=== PATIENT | male | born 1995 | race Caucasian/White ===

== ENCOUNTER 2020-12-04 09:53 | Emergency (ER) | payer OTHER, SELFPAY ==
--- NOTE | ~2020-12-04 | XR_ITS ---
EXAMINATION: XR chest 2V DATE: 12/04/2020 10:40 INDICATION: Shortness of breath. Cough. TECHNIQUE: Frontal and lateral views of the chest were obtained. COMPARISON: None. FINDINGS: There are patchy airspace opacities in the mid and lower lung zones. No pleural effusion or pneumothorax. The heart size is normal. IMPRESSION: 1. Patchy airspace opacities in the mid and lower lung zones, likely pneumonia such as COVID-19 pneum onia. Reviewed, dictated and finalized at location A. IMPRESSION: 1. Patchy airspace opacities in the mid and lower lung zones, likely pneumonia such as COVID-19 pneumonia.
--- NOTE | 2020-12-04 09:57 | ECG_ITS ---
Measurements Intervals [place] Rate: 111 P: 13 [place]: 150 QRS: -14 QRSD: 101 T: -6 QT: 307 QTc: 419 Interpretive Statements SINUS TACHYCARDIA BORDERLINE T WAVE ABNORMALITY- INFERIOR LEADS BASELINE ARTIFACT- I, II, III, AVR, AVF ABNORMAL ECG Electronically Signed On 12-04-2020 10:08:35 CDT by Samuel Conn D.O.
[2020-12-04 10:00] VITALS: BP 128/74; PULSE 115; RESP 24; TEMP 36.5; O2SAT 94
[2020-12-04 10:26] LABS: Basophils Percent Auto 0.2 % (0.2-1.2); Hematocrit 45.7 % (42.0-52.0); Hemoglobin 15.4 g/dL (14.0-18.0); Immature Granulocyte Absolute 0.03 K/mm3 (0.00-0.031); Immature Granulocyte Percent A 0.7 % (0-0.5); Lymphocytes Absolute Auto 1.31 K/mm3 (0.9-3.2); Lymphocytes Percent Auto 29.8 % (18.3-44.2); Mean Corpuscular HGB Conc 33.7 g/dl (32-36); Mean Corpuscular Hemoglobin 28.3 pg (26-34); Mean Corpuscular Volume 83.9 fl (80-100); Mean Platelet Volume 9.7 fl (7.4-10.4); Monocytes Absolute Auto 0.2 K/mm3 (0.1-0.6); Monocytes Percent Auto 5.2 % (2.6-8.5); Neutrophils Absolute Auto 2.8 K/mm3 (1.3-6.7); Neutrophils Percent Auto 64.1 % (45.5-73.1); Platelet Count Result 172 k/mm3 (150-375); Red Blood Count 5.45 M/mm3 (4.6-6.20); Red Cell Distribution Width 12.2 % (11.5-14.5); White Blood Count 4.4 K/mm3 (4.5-10.0)
[2020-12-04 11:03] LABS: Anion Gap 10 mmol/L (8-16); Blood Urea Nitrogen 12 mg/dL (9-20); Calcium 8.9 mg/dL (8.4-10.2); Carbon Dioxide 24 mmol/L (22-30); Chloride 102 mmol/L (98-107); Estimated CRCL calculation 123 ml/min; Estimated Glomerular Filt Rate > 60; Glucose 124 mg/dL (65-110); Potassium 3.4 mmol/L (3.4-5.0); Sodium 136 mmol/L (137-145)
--- NOTE | 2020-12-04 11:15 | ED.SOB ---
HPI - SOB/Dyspnea General Chief Complaint: Shortness of Breath/Dyspnea Stated Complaint: I can't breathe Time Seen by Provider: 12/04/20 11:06 History of Present Illness HPI Narrative: Body aches, DODSON, cough, nausea for the past few days. He has not been vaccinated for COVID-19. No fever, vomiting, diarrhea. Related Data Allergies Allergy/AdvReac Type Severity Reaction Status Date / Time No Known Allergies Allergy Unverified 04/18/13 13:00 Review of Systems Review of Systems: All systems reviewed & are unremarkable except as noted in HPI and below Constitutional: Constitutional: Reports chills, Reports fatigue and Denies fever(s) ENT: Denies dizziness and Denies sore throat Respiratory: Respiratory: Reports cough and Reports dyspnea Gastrointestinal: Gastrointestinal: Denies abdominal pain, Denies diarrhea, Reports nausea and Denies vomiting Genitourinary: Genitourinary: Reports no additional male genitourinary complaints Neurologic: Reports headache(s) [facility] Social History Social History Gender identity (if verbalized by the patient): Male Exam Const: General: no acute distress, alert and ill appearing Orientation/consciousness: patient oriented x3 HENMT: Head: normal to inspection Neck: Neck: normal visual inspection Resp: Effort & Inspection: tachypneic Auscultation: crackles and wheezes Cardio: Rate: tachycardic Rhythm: regular rhythm GI: GI Palp: Yes Soft to palpation and No Tenderness to palpation present (GI) Skin: General skin exam: normal color Neuro: General: patient oriented x3, moves all extremities, no focal motor deficits and CN's II-XI intact bilaterally Speech: normal speech Extrem: General: normal to inspection and no edema Psych: Mental Status: mental status grossly normal Affect: normal affect Attitude: cooperative Course Vital Signs Vital signs: Vital Signs Temperature 36.5 C 12/04/20 10:00 Pulse Rate 115 H 12/04/20 10:00 Respiratory Rate 24 H 12/04/20 10:00 Blood Pressure 128/74 12/04/20 10:00 Pulse Oximetry 94 12/04/20 10:00 Temperature 36.5 C 12/04/20 10:00 Pulse Rate 102 H 12/04/20 11:38 Respiratory Rate 18 12/04/20 11:38 Blood Pressure 128/74 12/04/20 10:00 Pulse Oximetry 94 12/04/20 10:00 MDM - SOB/Dyspnea MDM Narrative Medical decision making narrative: Covid pneumonia. Oxygenating well. Medical Records Attestation: I reviewed the patient's medical records. Lab Data Attestation: I reviewed the patient's lab results. Result diagrams: 12/04/20 10:10 12/04/20 10:10 Labs: Lab Results 12/04/20 12/04/20 12/04/20 Range/Units 10:10 10:10 11:52 WBC 4.4 L (4.5-10.0) K/mm3 RBC 5.45 (4.6-6.20) M/mm3 Hgb 15.4 (14.0-18.0) g/dL Hct 45.7 (42.0-52.0) % MCV 83.9 (80-100) fl MCH 28.3 (26-34) pg MCHC 33.7 (32-36) g/dl RDW 12.2 (11.5-14.5) % Plt Count 172 (150-375) k/mm3 MPV 9.7 (7.4-10.4) fl Immature Gran % (Auto) 0.7 H (0-0.5) % Neut % (Auto) 64.1 (45.5-73.1) % Lymph % (Auto) 29.8 (18.3-44.2) % [place] % (Auto) 5.2 (2.6-8.5) % Eos % (Auto) 0.0 (0-4.4) % Baso % (Auto) 0.2 (0.2-1.2) % Lymph # (Auto) 1.31 (0.9-3.2) K/mm3 [place] # (Auto) 0.2 (0.1-0.6) K/mm3 Eos # (Auto) 0.0 (0-0.3) K/mm3 Baso # (Auto) 0.0 (0.0-0.1) K/mm3 Abs Immat Gran (auto) 0.03 (0.00-0.031) K/mm3 Absolute Neuts (auto) 2.8 (1.3-6.7) K/mm3 Absolute Nucleated RBC 0.0 (0.0-0.012) K/mm3 Nucleated RBC % 0.0 (0.0-0.2) % Sodium 136 L (137-145) mmol/L Potassium 3.4 (3.4-5.0) mmol/L Chloride 102 (98-107) mmol/L Carbon Dioxide 24 (22-30) mmol/L Anion Gap 10 (8-16) mmol/L BUN 12 (9-20) mg/dL Creatinine 1.00 (0.7-1.3) mg/dL Estim Creat Clear Calc 123 ml/min Estimated GFR > 60 (59 - ) Glucose 124 H (65-110) mg/dL Calcium
[2020-12-04] MEDS: ALBUTEROL SULFATE NEB 2.5 MG/0.5 ML INH 5 MG INHALATION (11:32)
[2020-12-04] MEDS: IPRATROPIUM BR 0.02% INH SOLN 0.5 MG/2.5 ML VIAL INHALATION (11:32)
[2020-12-04 11:33] VITALS: PULSE 102; RESP 24
[2020-12-04 11:38] VITALS: PULSE 102; RESP 18
[2020-12-04] MEDS: DEXAMETHASONE SOD PHOS INJ 4 MG/ML VIAL 10 MG IM (11:48)
[2020-12-05 04:00] LABS: SARS-CoV-2 RNA PCR Positive
== END 2020-12-04 11:58 | disposition home or self-care (01) ==
PROVIDERS: Emergency Provider Emergency Medicine
DX: U07.1 COVID-19 (principal); J12.82 Pneumonia due to coronavirus disease 2019
CPT/HCPCS: 36415; 71046; 80048; 85025; 93005; 94640; 96372; 99284; C9803; J1100; U0003; U0005

== ENCOUNTER 2020-12-06 15:32 | Emergency (ER) | payer OTHER, SELFPAY ==
--- NOTE | ~2020-12-06 | XR_ITS ---
EXAMINATION: XR chest 1V DATE: 12/06/2020 15:52 INDICATION: COVID pneumonia with increasing shortness of breath TECHNIQUE: frontal view of the chest was obtained. COMPARISON: Chest radiograph dated 12/04/2020 FINDINGS: Streaky and patchy airspace opacities in the bilateral mid and lower lung zones with slight improveme nt in the bilateral mid and right lower lung zones and with slight increase in the left lower lung zo ne. No pleural effusion or pneumothorax. The cardiomediastinal silhouette is normal. IMPRESSION: 1. Minimal overall change in bilateral lung disease consistent with COVID pneumonia. Reviewed, dictated and finalized at location A. IMPRESSION: 1. Minimal overall change in bilateral lung disease consistent with COVID pneum onia.
--- NOTE | ~2020-12-06 | CT_ITS ---
EXAMINATION: CTA chest PE protocol DATE: 12/07/2020 07:42 CDT INDICATION: Shortness of breath. Covid pneumonia. TECHNIQUE: Computed tomographic angiography (CTA) of the chest was performed with 100 mL Omnipaque-35 0 intravenous contrast. The dose-length product was 475.79 mGy-cm. Maximum intensity projection 3D-re constructions of the aorta and other arteries were constructed by the technologist on a separate work station. Automated exposure control and iterative reconstruction technique were employed. COMPARISON: Chest dated 12/06/2020. FINDINGS: Study is significantly limited by respiratory motion artifact for evaluation of peripheral pulmonary arteries. No large central pulmonary embolism. No significant pleural or pericardial effusi on. Heart size normal. There is patchy airspace disease throughout both lungs, compatible with pneumo bryce. No endobronchial lesions. No pneumothorax. Cardiomegaly. No thoracic lymphadenopathy. IMPRESSION: 1. No large central pulmonary embolism. Evaluation for peripheral pulmonary arteries limited by signi ficant respiratory motion. 2: Extensive patchy bilateral infiltrates, compatible with pneumonia. Reviewed, dictated and finalized at location A. IMPRESSION: 1. No large central pulmonary embolism. Evaluation for peripheral pulmonary art eries limited by significant respiratory motion. 2: Extensive patchy bilateral infiltrates, compatible with pneumonia.
[2020-12-06 15:33] VITALS: BP 138/75; PULSE 95; RESP 24; TEMP 36.4; O2SAT 94
--- NOTE | 2020-12-06 15:35 | ECG_ITS ---
Measurements Intervals [place] Rate: 90 P: 24 [place]: 148 QRS: 7 QRSD: 95 T: 15 QT: 346 QTc: 425 Interpretive Statements SINUS RHYTHM BORDERLINE T WAVE ABNORMALITY- INFERIOR LEADS BASELINE ARTIFACT- I, II, III, AVR, AVF BORDERLINE ECG Electronically Signed On 12-06-2020 17:43:14 CDT by Samuel Conn D.O.
[2020-12-06 15:52] LABS: Basophils Percent Auto 0.2 % (0.2-1.2); Hematocrit 49.5 % (42.0-52.0); Hemoglobin 16.3 g/dL (14.0-18.0); Immature Granulocyte Absolute 0.13 K/mm3 (0.00-0.031); Immature Granulocyte Percent A 1.1 % (0-0.5); Lymphocytes Percent Auto 6.9 % (18.3-44.2); Mean Corpuscular HGB Conc 32.9 g/dl (32-36); Mean Corpuscular Hemoglobin 27.9 pg (26-34); Mean Corpuscular Volume 84.6 fl (80-100); Mean Platelet Volume 9.5 fl (7.4-10.4); Monocytes Absolute Auto 0.9 K/mm3 (0.1-0.6); Monocytes Percent Auto 7.4 % (2.6-8.5); Neutrophils Absolute Auto 9.9 K/mm3 (1.3-6.7); Neutrophils Percent Auto 84.4 % (45.5-73.1); Platelet Count Result 343 k/mm3 (150-375); Red Blood Count 5.85 M/mm3 (4.6-6.20); Red Cell Distribution Width 12.3 % (11.5-14.5); White Blood Count 11.7 K/mm3 (4.5-10.0)
[2020-12-06 16:01] LABS: Anion Gap 8 mmol/L (8-16); Blood Urea Nitrogen 23 mg/dL (9-20); Carbon Dioxide 26 mmol/L (22-30); Chloride 105 mmol/L (98-107); Estimated CRCL calculation 151 ml/min; Estimated Glomerular Filt Rate > 60; Glucose 138 mg/dL (65-110); Potassium 3.9 mmol/L (3.4-5.0); Sodium 139 mmol/L (137-145)
[2020-12-06 16:09] LABS: Base Excess ABG 2.3 mEq/l (+/-2.0); Carboxyhemoglobin 0.3 % THb (0-2.0); Fractional Inspired Oxygen 21 %; HCO3 ABG 23.2 mEq/l (22.0-26.0); Methemoglobin ABG 0.3 %THb (0-1.5); Oxygen Content ABG 21.7 %vol (16.0-22.0); Oxygen Saturation ABG 95.4 % (95.0-100.0); Oxyhemoglobin 93.1 % THb (90.0-100.0); PCO2 ABG 27.4 mmHg (35.0-45.0); PO2 ABG 65.9 mmHg (80.0-100.0); PO2 FiO2 Ratio Arterial Blood 3.14 %; Reduced Hemoglobin 6.3 %THb (0-5.0); Total Hemoglobin 16.6 g/dL (12.0-18.0)
[2020-12-06 16:10] LABS: Device ROOM AIR; Modified Allen's Test Pass; Site Drawn RIGHT RADIAL; pH ABG 7.546 (7.350-7.450)
[2020-12-06 17:15] LABS: D Dimer 0.58 ug/mL (<0.48)
[2020-12-06 17:43] VITALS: BP 120/60; PULSE 90; RESP 24; TEMP 36.5; O2SAT 95
[2020-12-06 20:33] VITALS: BP 121/76; PULSE 83; RESP 20; O2SAT 93
[2020-12-06] MEDS: SODIUM CHLORIDE 0.9% IV 1,000 ML 999 ML IV CONT (21:22)
[2020-12-06] MEDS: BENZONATATE 100 MG CAPSULE 200 MG PO (21:49)
[2020-12-06] MEDS: IPRATROPIUM BR 0.02% INH SOLN 0.5 MG/2.5 ML VIAL INHALATION (22:14)
[2020-12-06 22:15] VITALS: PULSE 89; RESP 25
[2020-12-06] MEDS: ALBUTEROL SULFATE NEB 2.5 MG/0.5 ML INH 5 MG INHALATION (22:15)
[2020-12-06 22:27] VITALS: PULSE 85; RESP 28
[2020-12-06] MEDS: LORazepam INJ (*CRX) 2 MG/ML VIAL 0.5 MG IV PUSH (23:04)
--- NOTE | 2020-12-06 23:08 | ED.GENADULT ---
HPI - General Adult General Chief complaint: Recheck/Abnormal Lab/Rx Stated complaint: covid+, LOW 02 Time Seen by Provider: 12/06/20 20:21 History of Present Illness HPI narrative: Patient is a 24-year-old gentleman who presents the emergency department with chief complaint of shortness of breath. Patient reports that he was diagnosed with COVID-19 and Covid pneumonia and reports that he has been getting more more short of breath. The patient reports he was concerned because his pulse oximeter at home had a couple of readings that were in the 80s. Patient reports no syncope reports a little bit of discomfort in his chest. Patient reports he has had a cough Related Data Allergies Allergy/AdvReac Type Severity Reaction Status Date / Time No Known Allergies Allergy Unverified 04/18/13 13:00 Review of Systems Review of Systems: A 10 system review of systems was completed on the patient and is negative except for what is stated in the HPI. Nursing and ancillary documentation was reviewed. [facility] Social History Social History Gender identity (if verbalized by the patient): Male Exam Narrative: GENERAL: Well-appearing, well-nourished, and in no acute distress. HEAD: Normocephalic, atraumatic. EYES: PERRLA and EOMI. ENT: Nares clear, no rhinorrhea or epistaxis. Mucous membranes moist. NECK: Supple. CHEST: Clear to auscultation. No respiratory distress. HEART: Regular rate and rhythm. No murmur heard. Normal peripheral pulses. ABDOMEN: Soft, nontender, nondistended, normal active bowel sounds. EXTREMITIES: Normal range of motion. No edema. SKIN: Warm, dry, no rash. NEURO: No focal deficits. Alert and oriented x3. PSYCH: Normal mood and affect. Course Vital Signs Vital signs: Vital Signs Temperature 36.4 C 12/06/20 15:33 Pulse Rate 95 12/06/20 15:33 Respiratory Rate 24 H 12/06/20 15:33 Blood Pressure 138/75 12/06/20 15:33 Pulse Oximetry 94 12/06/20 15:33 Temperature 36.5 C 12/06/20 17:43 Pulse Rate 85 12/06/20 22:27 Respiratory Rate 28 H 12/06/20 22:27 Blood Pressure 121/76 12/06/20 20:33 Pulse Oximetry 93 12/06/20 20:33 Medical Decision Making Vital Signs Vital Signs: Vital Signs Temperature 36.4 C 12/06/20 15:33 Pulse Rate 95 12/06/20 15:33 Respiratory Rate 24 H 12/06/20 15:33 Blood Pressure 138/75 12/06/20 15:33 Pulse Oximetry 94 12/06/20 15:33 Temperature 36.5 C 12/06/20 17:43 Pulse Rate 85 12/06/20 22:27 Respiratory Rate 28 H 12/06/20 22:27 Blood Pressure 121/76 12/06/20 20:33 Pulse Oximetry 93 12/06/20 20:33 Lab Data Result diagrams: 12/06/20 15:46 12/06/20 15:46 Labs: Lab Results 12/06/20 12/06/20 12/06/20 Range/Units 15:46 15:46 15:46 WBC 11.7 H (4.5-10.0) K/mm3 RBC 5.85 (4.6-6.20) M/mm3 Hgb 16.3 (14.0-18.0) g/dL Hct 49.5 (42.0-52.0) % MCV 84.6 (80-100) fl MCH 27.9 (26-34) pg MCHC 32.9 (32-36) g/dl RDW 12.3 (11.5-14.5) % Plt Count 343 D (150-375) k/mm3 MPV 9.5 (7.4-10.4) fl Immature Gran % (Auto) 1.1 H (0-0.5) % Neut % (Auto) 84.4 H (45.5-73.1) % Lymph % (Auto) 6.9 L (18.3-44.2) % [place] % (Auto) 7.4 (2.6-8.5) % Eos % (Auto) 0.0 (0-4.4) % Baso % (Auto) 0.2 (0.2-1.2) % Lymph # (Auto) 0.80 L (0.9-3.2) K/mm3 [place] # (Auto) 0.9 H (0.1-0.6) K/mm3 Eos # (Auto) 0.0 (0-0.3) K/mm3 Baso # (Auto) 0.0 (0.0-0.1) K/mm3 Abs Immat Gran (auto) 0.13 H (0.00-0.031) K/mm3 Absolute Neuts (auto) 9.9 H (1.3-6.7) K/mm3 Absolute Nucleated RBC 0.0 (0.0-0.012) K/mm3 Nucleated RBC % 0.0 (0.0-0.2) % D-Dimer 0.58 H (<0.48) ug/mL Methemoglobin (0-1.5) %THb Sodium 139 (137-145) mmol/L Potassium 3.9 (3.4-5.0) mmol/L Chloride 105 (98-107) mmol/L Carbon Dioxide 26 (22-30) mmol/L Anion Gap 8 (8-16) mm
--- NOTE | 2020-12-06 23:56 | PC.NURSE ---
spoke to pts , gave her update, all questions answered by this rn. this rn informed her that we will give her a call with any more updates.
[2020-12-07 00:22] VITALS: BP 124/70; PULSE 102; RESP 15; TEMP 36.7; O2SAT 96
== END 2020-12-07 00:15 | disposition home or self-care (01) ==
PROVIDERS: Emergency Medicine; Emergency Provider Emergency Medicine
DX: U07.1 COVID-19 (principal); J12.82 Pneumonia due to coronavirus disease 2019
CPT/HCPCS: 36415; 36600; 71045; 71275; 80048; 82375; 82805; 83050; 85025; 85380; 93005; 94640; 96361; 96374; 99284; A9270; J2060; J7030; Q9967